=== PATIENT | female | born 1995 | race Caucasian/White ===

== ENCOUNTER 2022-01-26 05:44 | Inpatient (IN) | payer OTHER, SELFPAY ==
[2022-01-26] VITALS (48 sets, daily range): BP systolic 85–129; BP diastolic 54–82; PULSE 77–136; RESP 16–18; TEMP 36.3–37.1; O2SAT 97–100; BMI 23.5
[2022-01-26] MEDS: LACTATED RINGERS 1000 ML 1,000 ML 1200 ML IV (05:51)
--- NOTE | 2022-01-26 06:07 | PM.OBHPLI ---
OB - H&P: HPI Labor/Induction History of Present Illness Date Seen: 01/26/22 Chief Complaint: The patient is a 26 year old 2 para at 1 weeks gestation by LMP, confirmed with 1st trimester US, who presents with painful regular contractions since 0300. Chief complaint: Maternity : 2 Para: 1 Narrative: Maite Moreno is a 26 year old at 37+3 who started tariq at 0300 on the morning of admission. Upon arrival was tariq Q2 minutes and cervix 6.5/100/0. Patient requesting epidural. She has a prior delivery at 35 weeks and had been on vaginal progesterone until 36 weeks gestation. She is GBS negative, blood type O+, hep B, HIV, GC/Chlam, syphilis testing all negative. She is rubella immune. History of Present Dating criteria: based on LMP (confirmed with 1st trimester US) care: good care Medical complications: none Labs Blood type: O (+) positive Rubella: immune RPR/VDLR: nonreactive GBS status: negative HBsAG: negative Review of Systems Status of ROS: Reports: 6 or more systems reviewed and unremarkable except as noted in History and below Meds Home Medications and Allergies Home Medications Medication Instructions Recorded Confirmed Type vits,calcium 91-iron 28 1 pkg PO DAILY 01/26/22 01/26/22 History mg-folic 975 mcg-dha 200 mg oral pack ( + DHA) Allergies Allergy/AdvReac Type Severity Reaction Status Date / Time adhesives Allergy Intermediate Uncoded 01/26/22 05:28 OB - H&P: Exam Physical Exam: Vital signs: Temp Pulse Resp BP Pulse Ox 97.8 F 99 16 126/82 98 01/26/22 05:12 01/26/22 05:11 01/26/22 05:12 01/26/22 05:11 01/26/22 05:14 Constitutional: Constitutional: no acute distress Routine HEENT Exam: Head: Present atraumatic Eye: Present EOMI and normal appearance ENT: Present mucous membranes moist Routine Neck Exam: Neck: Present full ROM Routine Respiratory Exam: Respiratory: Present CTA bilaterally Routine Cardiovascular Exam: Cardiovascular: RRR Comments: no murmur Detailed Labor and Delivery Exam: Dilation (cm): 7 Effacement (%): 100 Cervix position: mid Consistency: soft Contraction frequency (min): 2 Tachysystole: No Contraction intensity: Moderate Fetus (Single): Station: 0 Monitor Accelerations: Present Monitor Decelerations: Variable [facility] Variability: Moderate (6-25) Routine Extremities Exam: Extremities: Present full ROM Comments: no swelling in lower extremities. Routine Neurological Exam: Present alert and oriented X3 OB - Problem Based A/P Additional Plan (1) Term : Status: Acute Plan Epidural per patient request. Likely AROM Anticipate . Delivery/Labor/Induction Plan Plan: expectant management
[2022-01-26] MEDS: LIDOCAINE 2% (PF) 5 ML VIAL EPIDURAL (06:32)
[2022-01-26] MEDS: ROPIVACAINE 0.2% 100 ml 100 ML 12 MG EPIDURAL (06:36)
--- NOTE | 2022-01-26 06:44 | PM.ANBPRC ---
PFSH PFS Social History Smoking Status: Never smoker Meds Home Medications and Allergies Home Medications Medication Instructions Recorded Confirmed Type vits,calcium 91-iron 28 1 pkg PO DAILY 01/26/22 01/26/22 History mg-folic 975 mcg-dha 200 mg oral pack ( + DHA) Allergies Allergy/AdvReac Type Severity Reaction Status Date / Time adhesives Allergy Intermediate Uncoded 01/26/22 05:28 Results Vital Signs Vital Signs: Last Vital Signs Temp 97.8 F 01/26/22 05:12 Pulse 107 H 01/26/22 06:44 Resp 16 01/26/22 05:12 BP 91/54 L 01/26/22 06:44 Pulse Ox 100 01/26/22 06:40 Weight: 68.124 kg Height: 170.18 cm Anesthesia Procedures Epidural Insertion Patient Location: OB Start Time: 06:00 Stop Time: 07:00 Start Date: 01/26/22 Stop Date: 01/26/22 Reason for Block: procedure for pain Patient Position: sitting Performed By: Selina Cotto Preanesthetic Checklist: IV checked, risks and benefits discussed, monitors and equipment checked, pre-op evaluation, timeout performed and anesthesia consent Prep: chlorhexidine gluconate Monitoring: blood pressure monitoring, continuous pulse oximetry and heart rate Approach: midline Vertebral Space: lumbar (1-5) Epidural Technique: MICHAEL saline Needle Type: Tuohy needle Injection Technique: continuous catheter (continuous catheter) Needle gauge: 17 Needle Length (cm): 10 cm Needle Insertion Depth (cm): 5 Catheter Gauge: 19 Catheter Type: multi-orifice Catheter at skin depth (cm): 11 Test Dose Result: negative and lidocaine 1.5% with epinephrine 1 to 200,000
--- NOTE | 2022-01-26 07:02 | P.OBPN_ITS ---
Subjective Date Seen: 01/26/22 Narrative: Radha is a at 37+3 who presented in active labor. She is now comfortable with an epidural. Cervical check 100/0 and underwent AROM with moderate clear fluid. Objective Vital Signs: Last Vital Signs Temp 97.8 F 01/26/22 05:12 Pulse 102 H 01/26/22 07:00 Resp 16 01/26/22 05:12 BP 100/56 L 01/26/22 07:00 Pulse Ox 100 01/26/22 06:55 Pelvic Exam Dilation (cm): 9 Effacement (%): 100 Station: 0 Contractions Monitor mode: External Contraction Frequency: Q2 Contraction pattern: Regular Contraction intensity: Strong/Firm Assessment Assessment: active labor Station: 0 Amniotic Membrane Status: AROM Status: Category l Traffic Lieutenant Variability: Moderate (6-25) Monitor Accelerations: Present Monitor Decelerations: Variable Plan Plan: Continue expectant management. Anticipate
[2022-01-26] MEDS: LACTATED RINGERS 1000 ML 1,000 ML 125 ML IV (07:44)
[2022-01-26] MEDS: OXYTOCIN 10 UNIT/ML INJ IM (09:05)
[2022-01-26] MEDS: OXYTOCIN 30 unit/500 ML in NS 30 UNIT/500 ML BAG 300 UNIT IVPB (09:06)
--- NOTE | 2022-01-26 09:25 | PM.OBPRCVD ---
Procedure Procedure Done: Global Delivery augmentation: rupture of membranes Delivery monitor: external FHT Route of delivery: Laceration description: Perineal - 2nd Degree Delivery repair: Vicryl Estimated blood loss (mL): 163 Anesthesia type: Epidural Narrative: The patient is a 26 year-old admitted on 01/26/22 at 37 Weeks, 3 Days gestation for active labor.? Cervical exam on admission was 6.5 cm/100 % effaced/0 station with membranes intact in vertex presentation.? Contractions were every 2 minutes.? heart rate demonstrated baseline 150 bpm with moderate variability, + accelerations, - decelerations; a category 1 tracing.? AROM occurred at 0658 with clear fluid. ? Labor Analgesia:? epidural ? Pitocin:? no ? Labor onset:? 0300 ? Complete:? 08 Pushing:? 0831 ? heart tones during second stage were category 2. ? At 0858 a viable male infant delivered in vertex OA presentation over intact perineum via spontaneous vaginal delivery.? Infant was placed on maternal abdomen.? Cord was clamped and cut after a 30-60 second delay.? Nose and mouth were bulb suctioned.? weight pending.? 8 at 1 minute and 9 at 5 minutes.? Shoulder dystocia: no.? Nuchal cord: no. ? Placenta delivered spontaneously and complete at 0901 with a 3 vessel cord. After delivery, the uterus was boggy and did not respond well to bimanual massage. IM pitocin followed by IV pitocin was given with subsequently good uterine tone and normal vaginal bleeding. ? Mother and infant were stable after delivery. ? Lacerations:? 2nd degree perineal , repaired with 3-0 vicryl. ? Blood loss: 163 mL. Blood loss measurement type: QBL ? Sponge and needles counts are correct. Infant Infant Gender: Male presentation: vertex Placental Delivery Description: Spontaneous Cord Description: 3 Vessels
[2022-01-26 10:58] LABS: SARS PCR* Negative SARS-CoV-2 (Negative)
[2022-01-26] MEDS: IBUPROFEN 600 MG TABLET PO ×2 (10:58→18:33)
[2022-01-26] MEDS: ACETAMINOPHEN 500 MG TABLET 1000 MG PO ×2 (17:20→23:48)
[2022-01-26] MEDS: LANOLIN CREAM 1 APPLIC TOPICAL (17:20)
[2022-01-27 00:27] VITALS: BP 111/75; PULSE 80; RESP 16; TEMP 36.5; O2SAT 98
[2022-01-27] MEDS: IBUPROFEN 600 MG TABLET PO (02:44)
[2022-01-27 05:00] VITALS: BP 105/67; PULSE 77; RESP 16; TEMP 36.6; O2SAT 97
[2022-01-27 07:03] LABS: Hemoglobin* 11.2 gm/dL (12.0-16.0)
--- NOTE | 2022-01-27 08:19 | P.DS_ITS ---
DS: Providers Provider Date Seen: 01/27/22 Date of admission: 01/26/22 05:44 Primary care physician: Ceci Calloway MD Admitting Clinician: Ceci Calloway MD Attending Physician on discharge: Ceci Calloway MD DS: Diagnosis Discharge Diagnosis (1) Vaginal delivery: Status: Acute Exam Const: Vital Signs, click to edit/add: Vital Signs - 24 hr 01/26/22 08:24 01/26/22 08:29 01/26/22 08:34 Temperature Pulse Rate 106 H Pulse Rate [Blood Pressure Cuff] Respiratory Rate Blood Pressure 129/74 Blood Pressure [Ri ght Arm] Pulse Oximetry 98 98 99 Oxygen Delivery Me thod 01/26/22 08:40 01/26/22 08:45 01/26/22 08:51 Temperature Pulse Rate Pulse Rate [Blood Pressure Cuff] Respiratory Rate Blood Pressure Blood Pressure [Ri ght Arm] Pulse Oximetry 99 99 99 Oxygen Delivery Me thod 01/26/22 08:54 01/26/22 08:56 01/26/22 09:03 Temperature Pulse Rate 83 90 Pulse Rate [Blood Pressure Cuff] Respiratory Rate Blood Pressure 104/57 L 108/63 Blood Pressure [Ri ght Arm] Pulse Oximetry 98 Oxygen Delivery Me thod 01/26/22 09:17 01/26/22 09:32 01/26/22 09:46 Temperature Pulse Rate 87 85 88 Pulse Rate [Blood Pressure Cuff] Respiratory Rate Blood Pressure 128/68 108/59 L 103/56 L Blood Pressure [Ri ght Arm] Pulse Oximetry Oxygen Delivery Me thod 01/26/22 10:01 01/26/22 10:16 01/26/22 10:31 Temperature Pulse Rate 83 89 77 Pulse Rate [Blood Pressure Cuff] Respiratory Rate Blood Pressure 107/64 109/68 111/68 Blood Pressure [Ri ght Arm] Pulse Oximetry Oxygen Delivery Me thod 01/26/22 10:46 01/26/22 12:04 01/26/22 12:04 Temperature Pulse Rate 83 97 Pulse Rate [Blood Pressure Cuff] Respiratory Rate Blood Pressure 112/69 106/73 Blood Pressure [Ri ght Arm] Pulse Oximetry Oxygen Delivery Me thod 01/26/22 10:15 01/26/22 09:10 01/26/22 12:15 Temperature 98.2 F 98.5 F 98.7 F Pulse Rate Pulse Rate [Blood Pressure Cuff] 97 Respiratory Rate 18 18 16 Blood Pressure Blood Pressure [Ri ght Arm] 106/73 Pulse Oximetry Oxygen Delivery Me thod 01/26/22 15:53 01/26/22 21:00 01/27/22 00:27 Temperature 97.8 F 98.4 F 97.7 F Pulse Rate Pulse Rate [Blood Pressure Cuff] 85 87 80 Respiratory Rate 16 16 16 Blood Pressure Blood Pressure [Ri ght Arm] 117/79 108/69 111/75 Pulse Oximetry 97 98 98 Oxygen Delivery Me thod Room Air Room Air Room Air 01/27/22 05:00 Temperature 97.9 F Pulse Rate Pulse Rate [Blood Pressure Cuff] 77 Respiratory Rate 16 Blood Pressure Blood Pressure [Ri ght Arm] 105/67 Pulse Oximetry 97 Oxygen Delivery Me thod Room Air Common normals: no apparent distress GI: Common normals: soft to palpation and non-tender Palpation: soft Other: Uterus 2 cm below umbilicus and firm. OB - DS: Summary Hospital Course Hospital Course: The patient is a 26 year old G 2 P 2 at 37+3 weeks gestation that was admitted to the Center on 01/26/22 for active labor. She had an uncomplicated vaginal delivery. She delivered a viable male infant. She is breast feeding. the patient has done well. Peripartum Data delivery method: Vaginal Laceration description: Perineal - 2nd Degree complications: none [place] Infant Gender: Male Infant Discharge Plan: Home Time Spent with Patient Time attestation: Total time spent providing and/or coordinating discharge services: Time spent: Less than 30 minutes Discharge Plan Discharge Disposition: Home, Self-Care Date of Admission: 01/26/22 05:44 Primary Care Provider: Ceci Calloway Condition: Improved Anticipated Discharge Date/Time: 01/27/22 08:22 Discharge Medications: Continued + DHA 28 mg iron- 975 mcg-200 mg combo pack 1 pkg PO DAILY Discharge Orders: Discharge Order (Routine); Ordered 01/27/22 Ordered By: Ceci Calloway Patient Education: OB Vaginal/Breast Feeding Activity Level: No Restrictions Activity Detail: nothing per vagina for 6 weeks. Off work for 6 weeks. Discharge Diet: Regular Follow Up Appointments: Ceci Calloway MD [Primary Care Provider] - Forms: [facility] Info Instructions
[2022-01-27 09:00] VITALS: BP 117/64; PULSE 76; RESP 16; TEMP 36.6
== END 2022-01-27 10:20 | disposition home or self-care (01) | DRG 807 ==
LOC: OB OUT 05:46 → OB 01-27 08:22
PROVIDERS: Admitting Provider Family Medicine; PCP Family Medicine; Visit Provider Family Medicine
DX: O70.1 Second degree perineal laceration during delivery (principal); Z37.0 Single live birth; Z3A.37 37 weeks gestation of pregnancy
CPT/HCPCS: 1967; 36415; 85018; 87635; 99213; A9270; J2590; J2795; J7120